=== PATIENT | female | born 1960 | race Caucasian/White ===

== ENCOUNTER → 2018-11-22 | Outpatient (CLI) | payer BC ==
--- NOTE | 2018-11-23 09:09 | ECHOF ---
Referral Reason:R06.00 Dyspnea MEASUREMENTS -------- HEIGHT: 175.3 cm WEIGHT: 122.5 kg BP: 140/80 RVIDd: 3.5 cm (< 3.3) IVSd: 1.3 cm (0.6 - 1.1) LVIDd: 4.7 cm (3.9 - 5.3) LVPWd: 1.3 cm (0.6 - 1.1) IVSs: 1.7 cm LVIDs: 3.4 cm LVPWs: 1.5 cm LA Diam: 3.6 cm (2.7 - 3.8) LAESV Index (A-L): 25.96 ml/m Ao Diam: 3.0 cm (2.0 - 3.7) AV Cusp: 2.2 cm (1.5 - 2.6) EPSS: 0.5 cm MV E Young: 1.15 m/s MV DecT: 261 ms MV A Young: 1.01 m/s MV E/A Ratio: 1.14 AV maxP.49 mmHg AV meanP.94 mmHg RAP: 5.00 mmHg RVSP: 30.88 mmHg MV EF SLOPE: 101.00 mm/s (70 - 150) MV EXCURSION: 0.95 cm (> 18.000) FINDINGS -------- Sinus rhythm. This was a technically adequate study. The left ventricular size is normal. There is mild concentric left ventricular hypertrophy. Overa ll left ventricular systolic function is normal with, an EF between 60 - 65 %. The right ventricle is mildly enlarged. Left atrium is normal size by volume. The right atrium is normal in size and function. Interatrial and interventricular septum intact. The aortic valve is trileaflet and appears structurally normal. Peak/mean gradient across the valve is 15.49mmHg / 6.94mmHg. Mild mitral regurgitation is present. Mild tricuspid regurgitation present. Right ventricular systolic pressure is normal at < 35 mmHg. The right ventricular systolic pressure, as measured by Doppler, is 30.88mmHg. There is no pulmonic regurgitation present. The aortic root size is normal. Normal inferior vena cava with normal inspiratory collapse consistent with estimated right atrial pre ssure of 5 mmHg. There is no pericardial effusion. CONCLUSIONS -------- 1. Sinus rhythm. 2. This was a technically adequate study. 3. The left ventricular size is normal. 4. There is mild concentric left ventricular hypertrophy. 5. Overall left ventricular systolic function is normal with, an EF between 60 - 65 %. 6. The right ventricle is mildly enlarged. 7. Left atrium is normal size by volume. 8. The right atrium is normal in size and function. 9. Interatrial and interventricular septum intact. 10. The aortic valve is trileaflet and appears structurally normal. 11. Peak/mean gradient across the valve is 15.49mmHg / 6.94mmHg. 12. Mild mitral regurgitation is present. 13. Mild tricuspid regurgitation present. 14. Right ventricular systolic pressure is normal at < 35 mmHg. 15. The right ventricular systolic pressure, as measured by Doppler, is 30.88mmHg. 16. There is no pulmonic regurgitation present. 17. The aortic root size is normal. 18. Normal inferior vena cava with normal inspiratory collapse consistent with estimated right atrial pressure of 5 mmHg. 19. There is no pericardial effusion. SCREEN CUTTER AND TRIMMER: BRIDGET Eduardo
== END | disposition home or self-care (01) ==
LOC: RADECHMAIN 13:08
PROVIDERS: ATTEND Internal Medicine Rheumatology
DX: I08.1 Rheumatic disorders of both mitral and tricuspid valves (principal)
CPT/HCPCS: 93306

== ENCOUNTER → 2019-04-20 | Outpatient (CLI) | payer BC ==
--- NOTE | 2019-04-20 09:04 | FL ---
EXAMINATION TYPE: FL UGI air w esophagus DATE OF EXAM: 04/20/2019 COMPARISON: NONE HISTORY: Chest pain and vomiting for one month. Improved with Nexium and Tums. TECHNIQUE: A double contrast UGI study is performed. Fluoroscopy time of 2.04 minutes with 59 fluoro scopic images saved. FINDINGS: The esophagus shows normal motility and emptying into the stomach. No evidence of hiatal hernia or s tricture noted. The stomach shows normal distensibility and peristalsis. However there is diffuse rugal fold thickeni ng. No evidence of any mass or ulcer disease. Severe gastroesophageal reflux was seen during real naila e performance of this study to the level of the thoracic inlet. The duodenal bulb, sweep, and proximal small bowel loops are unremarkable. IMPRESSION: 1. Severe gastroesophageal reflux to the level of the thoracic inlet. No hiatal hernia seen. Incompet ent lower esophageal sphincter. 2. Diffuse rugal fold thickening, most typically seen in gastritis. No focal ulcer identified.
== END ==
LOC: RADUSWWP 07:48
PROVIDERS: ATTEND Internal Medicine
DX: K21.9 Gastro-esophageal reflux disease without esophagitis (principal); K29.70 Gastritis, unspecified, without bleeding
CPT/HCPCS: 74246